=== PATIENT | male | born 1950 | race Caucasian/White ===

== ENCOUNTER 2020-07-09 09:32 | Emergency (ER) | payer MEDICARE ==
[~2020-07-09] VITALS: Ht 185.4 cm; Wt 119.2 kg
[2020-07-09 09:45] VITALS: BP 98/48
--- NOTE | 2020-07-09 09:59 | RAD ---
CT scan of the head without contrast 07/09/2020 Clinical History: Left-sided weakness. Fall. Code stroke. Technique: Unenhanced, contiguous, 5 mm axial sections were obtained through the head. One or more of the following individualized dose reduction techniques were utilized for this study: 1. Automated exposure control. 2. Adjustment of the mA and/or kV according to patient size. 3. Use of iterative reconstruction technique. Findings: Packed coils are seen in the expected location of the tip of the basilar artery. This causes significant beam hardening artifact limiting evaluation of the brain. A right frontal ventriculostomy tube is seen extending to the frontal horn of the left lateral ventricle. There is no evidence of hydrocephalus. There is generalized parenchymal atrophy. Areas of decreased attenuation are seen within the periventricular and subcortical white matter of both cerebral hemispheres consistent with areas of small vessel ischemic disease. A 1.1 cm old area of lacunar infarction is seen involving the right thalamus. Old areas of infarction are seen involving both cerebellar hemispheres, right greater than left. These measure 5 mm to 3.2 cm in size. No acute parenchymal abnormality is seen. No extra-axial fluid collection is noted. No skull fracture is seen. Impression: No acute intracranial abnormality is seen. These results were discussed with Dr. De Leon. FOR INTERNAL CODING PURPOSES RESULT CODE: (C) Electronically signed by: Giorgio Ram MD (07/09/2020 9:55 AM) [id number]
--- NOTE | 2020-07-09 10:01 | RAD ---
EXAM: CT Cervical Spine without IV contrast INDICATION: Reason: left facial defects, recent stroke / Spl. Instructions: / History: TECHNIQUE: Multi-detector row CT images were obtained through the cervical spine without the use of IV contrast. Post-processing sagittal and coronal reconstructed images were obtained for interpretation. All CT scans performed at this facility utilize dose optimization techniques as appropriate to the exam, including the following: Automated exposure control and adjustment of the mA and/or KV according to patient size (this includes techniques or standardized protocols for targeted exams where dose is indication/reason for exam). COMPARISON: None FINDINGS: CRANIOCERVICAL JUNCTION: Unremarkable. ALIGNMENT: Alignment is within normal limits. OSSEOUS: Generalized osteopenia. No fracture or bone destruction identified. DISC SPACES: Multilevel disc degenerative change with partial fusion at C6-C7 FACET JOINTS: Unremarkable. SPINAL CANAL: Disc osteophyte complex at C6-C7 asymmetric to the right including bulky uncovertebral hypertrophy results in at least mild central canal bony narrowing. NEUROFORAMINA: Disc osteophyte complex at C5-C6 and C6-C7 asymmetric the right results in [id number] right-sided foraminal stenosis. 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 IMPRESSION: C-spine degenerative changes with no acute fracture or traumatic malalignment shown on CT. Electronically signed by: Rosa Brown MD (07/09/2020 9:58 AM) [id number]
--- NOTE | 2020-07-09 10:07 | PHYS DOC ---
Past History Past Medical History: Arthritis (Osteoarthritis), CAD (Triple bypass November 1999), CVA (Prior CVA at thalamus and clots May 2011, had subarachnoid bleed [place] December 2009), Diabetes (Metformin, not insulin-dependent), Other (Hydrocephalus with shunt) Past Surgical History: Coronary Bypass Surgery (November 1999, 33 coils for subarachnoid bleed in December 2009, hydrocephalus shunt May 2010) Adult General HPI HPI Patient is a 69-year-old male who presents via EMS for stroke. Patient had recent stroke June 13, 2020 and was subsequently discharged home. He can perform most activities of daily living and ambulates with a walker. Lives at home with family who reportedly saw him at his baseline this morning, last known normal ~0800. Later in the morning approximately 9 AM family heard patient fall in bathroom upstairs. When they went to evaluate him, they reported potential loss of consciousness for approximately 1 minute prior to returning to baseline. When they assessed him, patient was found to be physically weak with left facial droop and slurred speech which was new for him which concerned him prompting them to call EMS for transport to our facility. On arrival, patient's vitals were remarkable for hypotension at 104/80 and hyperglycemia approximately 260. He was subsequently transported to our facility for evaluation. On arrival, code stroke activated. Patient seen in route to the CT scanner. Denies any pain, reports he did not hit his head but admits he cannot totally recall episode of falling and is unsure if he suffered any prodromal symptoms. Denies any motor or sensory changes past baseline, states he has been compliant with all of his home medications and took his a.m. medications today. States he suffered "several" strokes earlier this month and is currently taking aspirin 325 mg daily in addition to Effient 10 mg daily. Review of Systems Review of Systems Fourteen body systems of review of systems have been reviewed. See HPI for pertinent positives and negative responses, other harris all other systems are negative, non-pertinent or non-contributory Physical Exam Physical Exam Constitutional: Pt is oriented to person, place, and time. Pt appears well nourished, no acute distress HENT: Head: Normocephalic and atraumatic. Mouth/Throat: Oropharynx is clear and moist. No hematomas or lacerations or abrasions to face or scalp OP clear, no blood, no malocclusion, dentition intact Nares clear, no nasal septal hematoma External ears unremarkable, negative blanton sign Midface stable Eyes: Conjunctivae and EOM are normal. Pupils are 3 mm, equal, round, and minimally reactive to light. Neck: C-spine midline nontender, no step-offs Cardiovascular: Normal rate, regular rhythm and normal heart sounds. Pulmonary/Chest: Effort normal and breath sounds normal. No respiratory distress. No wheezes. CTA bilaterally Abdominal: Soft. Bowel sounds are normal. Pt exhibits no distension. There is no tenderness. Gannon catheter in place last changed 3 days ago Musculoskeletal: No bony tenderness to extremities, no deformities, ROM extremities intact and at baseline per patient Chest wall stable Pelvis stable and non-tender No vertebral TTP and spine without stepoffs Neurological: Pt is alert and oriented to person, place, and time. Moving all extremities willfully, able to wiggle all fingers and toes. Alert and oriented x 3 Sensation intact to sharp and dull touch Skin: Skin is warm and dry. No abrasions, no lacerations Psychiatric: Behavior is appropriate for situation Nursing note and vitals reviewed. Current Patient Data Lab Results Laboratory Tests Test 07/09/20 09:49 07/09/20 09:50 Glucose (Fingerstick) 177 mg/dL (70-99) White Blood Count 7.0 x10^3/uL (4.0-11.0) Red Blood Count 4.86 x10^6/uL (4.30-5.70) Hemoglobin 14.4 g/dL (13.0-17.5) Hematocrit 44.1 % (39.0-53.0) Mean Corpuscular Volume 91 fL (79-100) Mean Corpuscular Hemoglobin 30 pg (25-35) Mean Corpuscular Hemoglobin Concent 33 g/dL (31-37) Red Cell Distribution Width 15.0 % (11.5-14.5) Platelet Count 235 x10^3/uL (140-400) Neutrophils (%) (Auto) 66 % (31-73) Lymphocytes (%) (Auto) 24 % (24-48) Monocytes (%) (Auto) 7 % (0-9) Eosinophils (%) (Auto) 3 % (0-3) Basophils (%) (Auto) 1 % (0-3) Neutrophils # (Auto) 4.6 x10^3uL (1.8-7.7) Lymphocytes # (Auto) 1.6 x10^3/uL (1.0-4.8) Monocytes # (Auto) 0.5 x10^3/uL (0.0-1.1) Eosinophils # (Auto) 0.2 x10^3/uL (0.0-0.7) Basophils # (Auto) 0.1 x10^3/uL (0.0-0.2) Sodium Level 139 mmol/L (136-145) Potassium Level 4.1 mmol/L (3.5-5.1) Chloride Level 104 mmol/L (98-107) Carbon Dioxide Level 22 mmol/L (21-32) Anion Gap 13 (6-14) Blood Urea Nitrogen 23 mg/dL (8-26) Creatinine 1.9 mg/dL (0.7-1.3) Estimated GFR (Cockcroft-Gault) 35.3 BUN/Creatinine Ratio 12 (6-20) Glucose Level 184 mg/dL (70-99) Calcium Level 9.1 mg/dL (8.5-10.1) EKG EKG EKG ordered and interpreted by myself at 1005 hrs. as sinus rhythm at 79 bpm, unremarkable intervals, no axis deviation, nonspecific T wave changes in leads V4, V5, and V6 without any other concerning abnormalities, no STEMI, Radiology/Procedures Radiology/Procedures EXAM: CHEST 1 VIEW History: History of stroke COMPARISON: None available. TECHNIQUE: Single portable radiograph of the chest FINDINGS: The cardiac silhouette is unremarkable. The lungs are clear bilaterally. The costophrenic sulci are clear and well demarcated. Shunt catheter projects over the right chest wall. IMPRESSION: No acute cardiopulmonary findings. Electronically signed by: Niko Moreno MD (07/09/2020 10:07 AM) [id number] EXAM: CT Cervical Spine without IV contrast INDICATION: Reason: left facial defects, recent stroke / Spl. Instructions: / History: TECHNIQUE: Multi-detector row CT images were obtained through the cervical spine without the use of IV contrast. Post-processing sagittal and coronal reconstructed images were obtained for interpretation. All CT scans performed at this facility utilize dose optimization techniques as appropriate to the exam, including the following: Automated exposure control and adjustment of the mA and/or KV according to patient size (this includes techniques or standardized protocols for targeted exams where dose is indication/reason for exam). COMPARISON: None FINDINGS: CRANIOCERVICAL JUNCTION: Unremarkable. ALIGNMENT: Alignment is within normal limits. OSSEOUS: Generalized osteopenia. No fracture or bone destruction identified. DISC SPACES: Multilevel disc degenerative change with partial fusion at C6-C7 FACET JOINTS: Unremarkable. SPINAL CANAL: Disc osteophyte complex at C6-C7 asymmetric to the right including bulky uncovertebral hypertrophy results in at least mild central canal bony narrowing. NEUROFORAMINA: Disc osteophyte complex at C5-C6 and C6-C7 asymmetric the right results in [id number] right-sided foraminal stenosis. 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 IMPRESSION: C-spine degenerative changes with no acute fracture or traumatic malalignment shown on CT. Electronically signed by: Rosa Brown MD (07/09/2020 9:58 AM) [id number] CT scan of the head without contrast 07/09/2020 Clinical History: Left-sided weakness. Fall. Code stroke. Technique: Unenhanced, contiguous, 5 mm axial sections were obtained through the head. One or more of the following individualized dose reduction techniques were utilized for this study: 1. Automated exposure control. 2. Adjustment of the mA and/or kV according to patient size. 3. Use of iterative reconstruction technique. Findings: Packed coils are seen in the expected location of the tip of the basilar artery. This causes significant beam hardening artifact limiting evaluation of the brain. A right frontal ventriculostomy tube is seen extending to the frontal horn of the left lateral ventricle. There is no evidence of hydrocephalus. There is generalized parenchymal atrophy. Areas of decreased attenuation are seen within the periventricular and subcortical white matter of both cerebral hemispheres consistent with areas of small vessel ischemic disease. A 1.1 cm old area of lacunar infarction is seen involving the right thalamus. Old areas of infarction are seen involving both cerebellar hemispheres, right greater than left. These measure 5 mm to 3.2 cm in size. No acute parenchymal abnormality is seen. No extra-axial fluid collection is noted. No skull fracture is seen. Impression: No acute intracranial abnormality is seen. Heart Score HEART Score for Chest Pain: HEART Score for Chest Pain Response (Comments) Value History Slighlty/Non-Suspicious 0 ECG Normal 0 Age > 65 2 Risk Factors >3 Risk Factors or Hx CAD 2 Troponin < Normal Limit 0 Total 4 Risk Factors: Risk Factors: DM, Current or recent (<one month) smoker, HTN, HLP, family history of CAD, obesity. Risk Scores: Risk Factors: DM, Current or recent (<one month) smoker, HTN, HLP, family history of CAD, obesity. Course & Med Decision Making Course & Med Decision Making Airway patent, breathing nonlabored, vitals remarkable for slight hypotension with [id number] glucose readings in the 200s Code stroke immediately called, CT imaging head unremarkable NIH stroke scale performed score of 4 Case immediately discussed with [facility] as patient has complicated history consistent of prior strokes, aneurysms, and hydrocephalus with shunt placement. I do not feel patient is fit for TPA at this time. He will need higher acuity of care such as angio perfusion and other subspecialist which our facility cannot provide. Dr. Shah at [facility] agreed for transfer and admission under his care. Prior to transportation, 500 mL normal saline bolused. Patient and updated on plan of care and both were amenable to transport. All questions and concerns addressed prior to EMS transport to [facility] in stable condition for continued medical care Dragon Disclaimer Dragon Disclaimer This electronic medical record was generated, in whole or in part, using a voice recognition dictation system. NIH Stroke Scale: NIH Stroke Scale Response (Comments) Value Level of Consciousness: 0 Alert/Responsive 0 LOC Questions: 0 Answers both correctly 0 LOC Commands: 0 Performs both tasks 0 Best Gaze: 0 Normal 0 Visual: 1 Partial hemianopia 1 Facial Palsy: 1 Minor paralysis 1 Motor - Left Arm 0 No drift 0 Motor - Right Arm 0 No drift 0 Motor - Left Leg 0 No drift 0 Motor: Right Leg 0 No drift 0 Limb Ataxia: 0 Absent 0 Sensory: 0 No loss 0 Best Language: 1 Mild to mod aphasia 1 Dysathria: 1 Mild to moderate 1 Extinction and Inattention: 0 Normal 0 Total 4 Departure Departure: Impression: Primary Impression: CVA (cerebral vascular accident) Additional Impressions: History of CVA (cerebrovascular accident) History of aneurysm of artery Non-insulin dependent diabetes mellitus Disposition: 02 DC/TRF OTHER SHORT TERM HOS ([facility] [place] [facility] [place]) Admitting Physician: Other (Dr. Shah) Condition: STABLE Referrals: PCP,NO (PCP) Problem Qualifiers GRACIELA HYDE DO Jul 09, 2020 10:07
--- NOTE | 2020-07-09 10:10 | RAD ---
EXAM: CHEST 1 VIEW History: History of stroke COMPARISON: None available. TECHNIQUE: Single portable radiograph of the chest FINDINGS: The cardiac silhouette is unremarkable. The lungs are clear bilaterally. The costophrenic sulci are clear and well demarcated. Shunt catheter projects over the right chest wall. IMPRESSION: No acute cardiopulmonary findings. Electronically signed by: Niko Moreno MD (07/09/2020 10:07 AM) [id number]
[2020-07-09 10:14] LABS: BASO # 0.1 x10^3/uL (0.0-0.2); BASO % 1 % (0-3); EOS # 0.2 x10^3/uL (0.0-0.7); EOS % 3 % (0-3); HEMATOCRIT 44.1 % (39.0-53.0); HEMOGLOBIN 14.4 g/dL (13.0-17.5); LYMPH # 1.6 x10^3/uL (1.0-4.8); LYMPH % 24 % (24-48); MEAN CORPUSCULAR HEMOGLOBIN 30 pg (25-35); MEAN CORPUSCULAR HGB CONC 33 g/dL (31-37); MEAN CORPUSCULAR VOLUME 91 fL (79-100); MONO # 0.5 x10^3/uL (0.0-1.1); MONO % 7 % (0-9); NEUT # 4.6 x10^3uL (1.8-7.7); NEUT % 66 % (31-73); PLATELET COUNT 235 x10^3/uL (140-400); RED BLOOD COUNT 4.86 x10^6/uL (4.30-5.70)
[2020-07-09] MEDS ORDERED: IV NORMAL SALINE 500ML 500 ML IV ONE (10:15)
[2020-07-09 10:20] LABS: CALCIUM 9.1 mg/dL (8.5-10.1); CREATININE 1.9 mg/dL (0.7-1.3); GFR 35.3; POTASSIUM 4.1 mmol/L (3.5-5.1)
[2020-07-09 10:27] LABS: ALBUMIN 3.5 g/dL (3.4-5.0); ALBUMIN/GLOBULIN RATIO 0.9 (1.0-1.7); TOTAL BILIRUBIN 0.5 mg/dL (0.2-1.0); TOTAL PROTEIN 7.2 g/dL (6.4-8.2)
[2020-07-09 10:37] LABS: BILIRUBIN,URINE NEG (NEG); CLARITY,URINE TURBID; COLOR,URINE YELLOW; GLUCOSE,URINE NEG (NEG); NITRITE,URINE NEG (NEG)
[2020-07-09 10:38] LABS: BACTERIA,URINE MOD /HPF (0-FEW); RBC,URINE 20-40 /HPF (0-2); SQUAMOUS EPITHELIAL CELL,UR FEW /LPF; WBC,URINE >40 /HPF (0-4); YEAST,URINE PRESENT /HPF
--- NOTE | 2020-07-09 14:48 | EKG ---
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
== END 2020-07-09 11:00 | disposition short-term general hospital (02) ==
LOC: ER 09:32
DX: I63.9 Cerebral infarction, unspecified (principal); R55 Syncope and collapse; R29.810 Facial weakness; R47.81 Slurred speech; M19.90 Unspecified osteoarthritis, unspecified site; E11.9 Type 2 diabetes mellitus without complications; I25.10 Atherosclerotic heart disease of native coronary artery without angina pectoris; Z98.890 Other specified postprocedural states
CPT/HCPCS: 36415; 70450; 71045; 72125; 80053; 81001; 82947; 84484; 85025; 85610; 85730; 93005; 96360; 99285; J7040